=== PATIENT | male | born 1970 | race Caucasian/White ===

== ENCOUNTER 2018-11-24 19:16 | Emergency (ER) | payer MEDICARE, BC ==
--- NOTE | 2018-11-24 22:35 | ED ---
Complex/Multi-Sys Presentation - HPI Summary HPI Summary: A 48 y/o male presents to [facility] with a chief complaint of his PICC line in his right arm being out of place. He notes that for 3-4 weeks he has had a bone infection. The patient denies any pain. At triage he rated his pain as a 0/10 in severity. The patient says that he takes Daptomycin and Ceftriaxone. - History Of Current Complaint Chief Complaint: EDGeneral Time Seen by Provider: 11/24/18 22:10 Hx Obtained From: Patient Onset/Duration: Sudden Onset, Lasting Hours, Still Present Timing: Constant Severity Currently: Mild Severity Initially: Mild Location: Negative Aggravating Factor(s): nothing Alleviating Factor(s): nothing Associated Signs And Symptoms: Negative: Fever - Allergies/Home Medications Allergies/Adverse Reactions: Allergies Allergy/AdvReac Type Severity Reaction Status Date / Time epoetin sharon [From Epogen] Allergy Hives Verified 11/24/18 19:30 Penicillins Allergy Hives Verified 11/24/18 19:30 SEAFOOD Allergy Vomiting Uncoded 11/24/18 19:30 PMH/Surg Hx/FS Hx/Imm Hx Endocrine/Hematology History: Reports: Hx Diabetes Cardiovascular History: Reports: Hx Hypertension Denies: Hx Pacemaker/ICD History: Reports: Hx Renal Disease Sensory History: Denies: Hx Hearing Aid Psychiatric History: Denies: Hx Panic Disorder - Surgical History Surgery Procedure, Year, and Place: 2X SINUS SURGERY; FISTULA AND CLEANED IT OUT AGAIN; CATARACT RIGHT EYE; KIDNEY TRANSPLANT Infectious Disease History: No Infectious Disease History: Denies: Traveled Outside the [place] in Last 30 Days - Family History Known Family History: Negative: Blood Disorder - Social History Alcohol Use: Weekly Substance Use Type: Reports: None Smoking Status (MU): Never Smoked Tobacco Have You Smoked in the Last Year: No Review of Systems Negative: Fever Positive: Other - positive: PICC line in right arm out of place. Negative: Chest Pain Negative: Abdominal Pain All Other Systems Reviewed And Are Negative: Yes Physical Exam - Summary Physical Exam Summary: VITAL SIGNS: Reviewed. GENERAL: Patient is a well-developed and nourished MALE who is lying comfortable in the stretcher. Patient is not in any acute respiratory distress. PICC line right arm half way out 6-7 inches out but was flushing easily. HEAD AND FACE: No signs of trauma. No ecchymosis, hematomas or skull depressions. No sinus tenderness. EYES: PERRLA, EOMI x 2, No injected conjunctiva, no nystagmus. EARS: Hearing grossly intact. Ear canals and tympanic membranes are within normal limits. MOUTH: Oropharynx within normal limits. NECK: Supple, trachea is midline, no adenopathy, no JVD, no carotid bruit, no c- spine tenderness, neck with full ROM CHEST: Symmetric, no tenderness at palpation LUNGS: Clear to auscultation bilaterally. No wheezing or crackles. CVS: Regular rate and rhythm, S1 and S2 present, no murmurs or gallops appreciated. ABDOMEN: Soft, non-tender. No signs of distention. No rebound no guarding, and no masses palpated. Bowel sounds are normal. EXTREMITIES: FROM in all major joints, no edema, no cyanosis or clubbing. NEURO: Alert and oriented x 3. No acute neurological deficits. Speech is normal and follows commands. SKIN: Dry and warm Triage Information Reviewed: Yes Vital Signs On Initial Exam: Initial Vitals Temp Pulse Resp BP Pulse Ox 98.2 F 63 18 0/0 93 11/24/18 19:28 11/24/18 19:28 11/24/18 19:28 11/24/18 19:28 11/24/18 19:28 Vital Signs Reviewed: Yes Diagnostics - Vital Signs Vital Signs Temp Pulse Resp BP Pulse Ox 11/24/18 19:28 98.2 F 63 18 0/0 93 - Laboratory Lab Statement: Any lab studies that have been ordered have been reviewed, and results considered in the medical decision making process. - Radiology CXR Radiology Interpretation Completed By: ED Physician Summary of Radiographic Findings: tip of PICC line seems to be at basilic vein. Pending official imaging report. Complex Multi-Symp Course/Dx Course Of Treatment: A 48 y/o male presents to [facility] with a chief complaint of his PICC line in his right arm being out of place. He notes that for 3-4 weeks he has had a bone infection. The physical exam revealed that the patient has a PICC line right arm half way out 6-7 inches out but was flushing easily. CXR showed tip of PICC line seems to be at basilic vein. The patient will be discharged and was instructed to use the PICC line as far as it flushes easily. PICC line should not go any further and needs to be changed on . He is to contact Dr. Cooley the morning of 11/26/18 to organize PICC line placement. The patient is agreeable with this plan. - Diagnoses Provider Diagnoses: S/P PICC central line placement Discharge - Sign-Out/Discharge Documenting (check all that apply): Patient Departure - DC Patient Received Moderate/Deep Sedation with Procedure: No - Discharge Plan Condition: Stable Disposition: HOME Referrals: Macario Dela Cruz MD [Primary Care Provider] - 3 Days Yasir FOX,Juan Manuel Álvarez [Medical Doctor] - Additional Instructions: Use PICC line as far as it flushes easily. PICC line should not go any further and needs to be changed on 11/26/18. Contact Dr. Cooley Monday to organize PICC line placement. PLEASE RETURN TO THE ED IMMEDIATELY FOR WORSENING OR CONCERNING SYMPTOMS. - Billing Disposition and Condition Condition: STABLE Disposition: Home - Attestation Statements Document Initiated by Scribe: Yes Documenting Scribe: Marcelino Roy Provider For Whom Gladyse is Documenting (Include Credential): Nishant Chua MD Scribe Attestation: I, Marcelino Roy, scribed for Nishant Chua MD on 11/25/18 at 0512. Scribe Documentation Reviewed: Yes Provider Attestation: The documentation as recorded by the Marcelino freeman accurately reflects the service I personally performed and the decisions made by me, Nishant Chua MD Status of Scribe Document: Viewed
[2018-11-25 00:38] VITALS: BP 0/0
== END 2018-11-25 00:36 | disposition home or self-care (01) ==
LOC: ED 19:16
DX: T82.524A Displacement of infusion catheter, initial encounter (principal); E11.9 Type 2 diabetes mellitus without complications; I10 Essential (primary) hypertension; Z79.899 Other long term (current) drug therapy
CPT/HCPCS: 71045; 99282